=== PATIENT | female | born 1985 | race African-American/Black ===

== ENCOUNTER 2021-02-07 12:59 | Emergency (ER) | payer MEDICAID ==
[~2021-02-07] VITALS: Ht 162.6 cm; Wt 73.0 kg
[2021-02-07] MEDS ORDERED: ASPIRIN 81MG TABLET PO ONE (13:45)
[2021-02-07] MEDS ORDERED: NITROGLYCERIN 0.4MG TABLET SL SL PRN (13:45)
[2021-02-07 14:07] LABS: BASOPHILS % 0.3 % (0.0-2.0); HEMATOCRIT. 38.6 % (36.0-48.0); HEMOGLOBIN. 13.3 g/dL (12.0-16.0); LYMPHOCYTES % 23.2 % (20.0-50.0); MEAN CORPUSCULAR HEMOGLOBIN 30.2 pg (28.0-32.0); MEAN CORPUSCULAR VOLUME 87.8 fL (81.0-99.0); MONOCYTES % 7.7 % (2.0-8.0); NEUTROPHILS % 68.8 % (40.0-76.0); PLATELET 199 x1000/uL (130-400)
[2021-02-07 14:13] LABS: CHLORIDE 108 mEq/L (98-107)
[2021-02-07 14:14] LABS: D-DIMER 0.36 mg/L FEU (<0.50); PARTIAL THROMBOPLASTIN TIME 27.6 sec (23.4-31.0); PROTHROMBIN TIME 10.4 sec (9.6-11.0)
[2021-02-07 14:17] LABS: HCG SCREEN NEGATIVE
[2021-02-07] MEDS ORDERED: IBUP-2028 MT (18:32)
[2021-02-07 18:44] VITALS: BP 122/72
== END 2021-02-07 18:46 | disposition home or self-care (01) ==
LOC: ER 12:59
DX: U07.1 COVID-19 (principal); R07.2 Precordial pain; R03.0 Elevated blood-pressure reading, without diagnosis of hypertension
CPT/HCPCS: 36415; 71045; 80053; 83880; 84484; 84703; 85025; 85379; 85610; 85730; 93005; 99285; Z7610